=== PATIENT | female | born 1960 | race Caucasian/White ===

== ENCOUNTER 2025-09-09 18:24 | Outpatient (CLI) | payer OTHER, SELFPAY ==
[2025-09-09 10:56] LABS: Abs Immature Grans 0.03 10^3/uL (0.0-0.06); HCT 34.6 % (36.0-46.0); HGB 11.3 g/dL (11.2-15.7); Immature Grans % 0.4 %; MCH 28.1 pg (27.0-33.0); MCHC 32.7 % (32.0-36.0); MCV 86 fL (80-95); MPV 8.6 fL (8.0-11.0); Platelet Count 239 10^3/uL (130-400); RBC 4.02 10^6/uL (3.93-5.22); RDW 13.0 % (11.7-14.6); RDW-SD 41.0 fL; WBC 6.74 10^3/uL (4.4-10.8)
[2025-09-09 11:12] LABS: ALT 17 U/L (14-59); AST 18 U/L (15-37); Albumin 4.0 g/dL (3.4-5.0); Alkaline Phosphatase 74 U/L (46-116); Anion Gap 7.4 mmol/L (3-11); BUN 24 mg/dL (7-18); Bilirubin, Total 0.6 mg/dL (0.2-1.0); CO2 28.6 mmol/L (21.0-32.0); Calcium 9.2 mg/dL (8.5-10.1); Chloride 102 mmol/L (98-107); Estimated GFR 81.21 (mL/min/1.73m2); Glucose 106 mg/dL (74-106); Potassium 4.1 mmol/L (3.5-5.1); Sodium 138 mmol/L (136-145); Total Protein 7.4 g/dL (6.4-8.2)
[2025-09-09 19:11] LABS: HIV-1/2 Ag & Ab Screen Negative (Negative)
[2025-09-14 07:44] LABS: DPYD Activity Score 2.00; DPYD Phenotype Normal metabolizer
== END 2025-09-09 18:25 | disposition home or self-care (01) ==
LOC: LBO 18:24
PROVIDERS: Visit Provider Internal Medicine Hematology & Oncology
DX: C21.0 Malignant neoplasm of anus, unspecified (principal)
CPT/HCPCS: 36415; 80053; 81232; 87389; 85025

== ENCOUNTER 2025-09-27 14:45 | Outpatient (RCR) | payer OTHER, SELFPAY ==
--- NOTE | 2025-09-26 08:45 | DI.RAD_ITS ---
Exam(s) XR PORTABLE CHEST AP EXAM: XR PORTABLE CHEST AP CLINICAL HISTORY: Picc Line Placement. TECHNIQUE: 2D digital imaging was performed. COMPARISON: No exams were available for comparison FINDINGS: Single AP portable view. Heart size is upper normal. The mediastinum is not widened. Lungs are clear. No infiltrates nor obvious pleural effusions. Distal tip of the right PICC line is at the SVC-RA junction Fusion hardware in the lower cervical spine noted.. IMPRESSION: No acute pulmonary findings on this single AP portable view of the chest. Distal tip of the newly placed right PICC line is in good position at the SVC-RA junction. Discussed by phone with PICC line nurse 09/26/2025 6:15 p.m. DATA REPOSITORY: RADIATION DOSE DELIVERED:
[2025-09-26 18:48] VITALS: BP 137/65; PULSE 62; RESP 17; TEMP 36.8; O2SAT 95
[2025-09-26 20:42] LABS: Abs Immature Grans 0.03 10^3/uL (0.0-0.06); HCT 32.9 % (36.0-46.0); HGB 10.6 g/dL (11.2-15.7); Immature Grans % 0.4 %; MCH 28.3 pg (27.0-33.0); MCHC 32.2 % (32.0-36.0); MCV 88 fL (80-95); MPV 9.2 fL (8.0-11.0); Platelet Count 259 10^3/uL (130-400); RBC 3.75 10^6/uL (3.93-5.22); RDW 12.9 % (11.7-14.6); RDW-SD 41.3 fL; WBC 8.45 10^3/uL (4.4-10.8)
[2025-09-26 21:05] LABS: ALT 18 U/L (14-59); AST 17 U/L (15-37); Albumin 3.8 g/dL (3.4-5.0); Alkaline Phosphatase 67 U/L (46-116); Anion Gap 7.8 mmol/L (3-11); BUN 17 mg/dL (7-18); Bilirubin, Total 0.4 mg/dL (0.2-1.0); CO2 30.2 mmol/L (21.0-32.0); Calcium 8.9 mg/dL (8.5-10.1); Chloride 103 mmol/L (98-107); Estimated GFR 95.32 (mL/min/1.73m2); Glucose 87 mg/dL (74-106); Potassium 4.1 mmol/L (3.5-5.1); Sodium 141 mmol/L (136-145); Total Protein 7.1 g/dL (6.4-8.2)
== END 2025-10-23 23:59 | disposition home or self-care (01) ==
LOC: INF 14:45
PROVIDERS: Visit Provider Internal Medicine Hematology & Oncology
DX: C21.0 Malignant neoplasm of anus, unspecified (principal); Z45.2 Encounter for adjustment and management of vascular access device
CPT/HCPCS: 36573; 80053; 71045; 85025

== ENCOUNTER 2025-10-04 15:27 | Outpatient (CLI) | payer OTHER, SELFPAY ==
[2025-10-04 16:40] LABS: Abs Immature Grans 0.03 10^3/uL (0.0-0.06); HCT 36.2 % (36.0-46.0); HGB 11.7 g/dL (11.2-15.7); Immature Grans % 0.6 %; MCH 28.6 pg (27.0-33.0); MCHC 32.3 % (32.0-36.0); MCV 89 fL (80-95); MPV 9.1 fL (8.0-11.0); Platelet Count 221 10^3/uL (130-400); RBC 4.09 10^6/uL (3.93-5.22); RDW 12.4 % (11.7-14.6); RDW-SD 40.5 fL; WBC 4.95 10^3/uL (4.4-10.8)
[2025-10-04 18:13] LABS: ALT 9 U/L (10-49); AST 20 U/L (<34); Albumin 4.5 g/dL (3.4-5.0); Alkaline Phosphatase 68 U/L (46-116); Anion Gap 8.5 mmol/L (3-11); BUN 20 mg/dL (9-23); Bilirubin, Total 0.80 mg/dL (0.2-1.2); CO2 27.5 mmol/L (20.0-31.0); Calcium 9.2 mg/dL (8.3-10.6); Chloride 105 mmol/L (98-107); Glucose 86 mg/dL (74-106); Potassium 4.2 mmol/L (3.5-5.1); Sodium 141 mmol/L (136-145); Total Protein 7.2 g/dL (5.7-8.2)
== END 2025-10-04 15:28 | disposition home or self-care (01) ==
LOC: LBO 15:27
PROVIDERS: Visit Provider Internal Medicine Hematology & Oncology
DX: C21.0 Malignant neoplasm of anus, unspecified (principal)
CPT/HCPCS: 36415; 80053; 85025

== ENCOUNTER 2025-10-12 15:36 | Outpatient (CLI) | payer OTHER, SELFPAY ==
[2025-10-12 15:56] LABS: Abs Immature Grans 0.01 10^3/uL (0.0-0.06); HCT 33.5 % (36.0-46.0); HGB 11.0 g/dL (11.2-15.7); Immature Grans % 0.3 %; MCH 28.9 pg (27.0-33.0); MCHC 32.8 % (32.0-36.0); MCV 88 fL (80-95); MPV 8.4 fL (8.0-11.0); Platelet Count 104 10^3/uL (130-400); RBC 3.81 10^6/uL (3.93-5.22); RDW 12.8 % (11.7-14.6); RDW-SD 40.0 fL; WBC 3.19 10^3/uL (4.4-10.8)
[2025-10-12 16:33] LABS: ALT 10 U/L (10-49); AST 21 U/L (<34); Albumin 4.3 g/dL (3.4-5.0); Alkaline Phosphatase 59 U/L (46-116); Anion Gap 8.1 mmol/L (3-11); BUN 21 mg/dL (9-23); Bilirubin, Total 0.40 mg/dL (0.2-1.2); CO2 28.9 mmol/L (20.0-31.0); Calcium 9.3 mg/dL (8.3-10.6); Chloride 103 mmol/L (98-107); Glucose 95 mg/dL (74-106); Potassium 4.0 mmol/L (3.5-5.1); Sodium 140 mmol/L (136-145); Total Protein 6.9 g/dL (5.7-8.2)
== END 2025-10-12 15:37 | disposition home or self-care (01) ==
LOC: LBO 15:36
PROVIDERS: Visit Provider Internal Medicine Hematology & Oncology
DX: C21.0 Malignant neoplasm of anus, unspecified (principal)
CPT/HCPCS: 36415; 80053; 85025

== ENCOUNTER 2025-10-18 13:28 | Outpatient (CLI) | payer OTHER, SELFPAY ==
[2025-10-18 13:37] LABS: Abs Immature Grans 0.02 10^3/uL (0.0-0.06); HCT 36.8 % (36.0-46.0); HGB 12.2 g/dL (11.2-15.7); Immature Grans % 0.6 %; MCH 28.8 pg (27.0-33.0); MCHC 33.2 % (32.0-36.0); MCV 87 fL (80-95); MPV 8.7 fL (8.0-11.0); Platelet Count 126 10^3/uL (130-400); RBC 4.23 10^6/uL (3.93-5.22); RDW 13.5 % (11.7-14.6); RDW-SD 39.0 fL; WBC 3.34 10^3/uL (4.4-10.8)
[2025-10-18 14:09] LABS: ALT 13 U/L (10-49); AST 29 U/L (<34); Albumin 4.7 g/dL (3.2-5.0); Alkaline Phosphatase 62 U/L (46-116); Anion Gap 8.3 mmol/L (3-11); BUN 19 mg/dL (9-23); Bilirubin, Total 0.90 mg/dL (0.2-1.2); CO2 30.8 mmol/L (20.0-31.0); Calcium 9.6 mg/dL (8.3-10.6); Chloride 97 mmol/L (98-107); Glucose 104 mg/dL (74-106); Potassium 3.4 mmol/L (3.5-5.1); Sodium 136 mmol/L (136-145); Total Protein 7.9 g/dL (5.7-8.2)
== END 2025-10-18 13:29 | disposition home or self-care (01) ==
LOC: LBO 13:29
PROVIDERS: Visit Provider Internal Medicine Hematology & Oncology
DX: C21.0 Malignant neoplasm of anus, unspecified (principal)
CPT/HCPCS: 36415; 80053; 85025

== ENCOUNTER 2025-10-25 09:15 | Outpatient (CLI) | payer OTHER, SELFPAY ==
[2025-10-25 09:10] LABS: Abs Immature Grans 0.03 10^3/uL (0.0-0.06); HCT 33.2 % (36.0-46.0); HGB 11.0 g/dL (11.2-15.7); Immature Grans % 0.5 %; MCH 29.0 pg (27.0-33.0); MCHC 33.1 % (32.0-36.0); MCV 88 fL (80-95); MPV 8.1 fL (8.0-11.0); Platelet Count 132 10^3/uL (130-400); RBC 3.79 10^6/uL (3.93-5.22); RDW 14.9 % (11.7-14.6); RDW-SD 42.4 fL; WBC 6.61 10^3/uL (4.4-10.8)
[2025-10-25 09:32] LABS: ALT 15 U/L (10-49); AST 25 U/L (<34); Albumin 4.4 g/dL (3.2-5.0); Alkaline Phosphatase 53 U/L (46-116); Anion Gap 7.1 mmol/L (3-11); BUN 19 mg/dL (9-23); Bilirubin, Total 0.70 mg/dL (0.2-1.2); CO2 28.9 mmol/L (20.0-31.0); Calcium 9.3 mg/dL (8.3-10.6); Chloride 104 mmol/L (98-107); Glucose 106 mg/dL (74-106); Potassium 3.5 mmol/L (3.5-5.1); Sodium 140 mmol/L (136-145); Total Protein 6.9 g/dL (5.7-8.2)
== END 2025-10-25 09:16 | disposition home or self-care (01) ==
LOC: LBO 09:15
PROVIDERS: Visit Provider Internal Medicine Hematology & Oncology
DX: C21.0 Malignant neoplasm of anus, unspecified (principal)
CPT/HCPCS: 36415; 80053; 85025

== ENCOUNTER 2025-11-02 00:40 | Outpatient (CLI) | payer OTHER, SELFPAY ==
[2025-11-02 08:39] LABS: Abs Immature Grans 0.02 10^3/uL (0.0-0.06); HCT 30.5 % (36.0-46.0); HGB 10.2 g/dL (11.2-15.7); Immature Grans % 0.5 %; MCH 29.1 pg (27.0-33.0); MCHC 33.4 % (32.0-36.0); MCV 87 fL (80-95); MPV 7.9 fL (8.0-11.0); Platelet Count 118 10^3/uL (130-400); RBC 3.50 10^6/uL (3.93-5.22); RDW 15.9 % (11.7-14.6); RDW-SD 49.0 fL; WBC 4.22 10^3/uL (4.4-10.8)
[2025-11-02 09:01] LABS: ALT 18 U/L (10-49); AST 28 U/L (<34); Albumin 4.1 g/dL (3.2-5.0); Alkaline Phosphatase 53 U/L (46-116); Anion Gap 8.2 mmol/L (3-11); BUN 18 mg/dL (9-23); Bilirubin, Total 0.7 mg/dL (0.2-1.2); CO2 26.8 mmol/L (20.0-31.0); Calcium 9.2 mg/dL (8.3-10.6); Chloride 104 mmol/L (98-107); Glucose 106 mg/dL (74-106); Potassium 3.7 mmol/L (3.5-5.1); Sodium 139 mmol/L (136-145); Total Protein 6.8 g/dL (5.7-8.2)
== END 2025-11-02 00:41 | disposition home or self-care (01) ==
LOC: LBO 00:40
PROVIDERS: Visit Provider Internal Medicine Hematology & Oncology
DX: C21.0 Malignant neoplasm of anus, unspecified (principal)
CPT/HCPCS: 36415; 80053; 85025